=== PATIENT | female | born 1985 | race Caucasian/White ===

== ENCOUNTER 2017-01-31 16:26 | Inpatient (IN) | payer OTHER ==
--- NOTE | ~2017-01-31 | PN ---
Unit #: [id number] #: [id number] Patient: ORALIA WOODARD [id number] [facility] [address] [place] [address] [id number] I MR#: [id number] NAME: ORALIA WOODARD ROOM: [facility]6 Age: 31 Sex: F Admission Date: 01/31/2017 : 1985 Attending Physician: Cb Simon M.D. Admitting Physician: Selena Gomez PROGRESS NOTES DATE 02/02/2017 DISCUSSION Oralia complains of some mild sedation from the Seroquel but plans to take all three doses today. She slept better last night and her speech is less manic and pressured this morning. Mood remains expansive with a congruent affect. She is alert and fully oriented. She has no active psychosis today. ASSESSMENT Bipolar mixed. PLAN Continue current treatment plan. Dictated by... Selena Gomez/wellington TD: 02/03/2017 06:07 JOB #: [id number] [facility] PROGRESS NOTES Page 1 of 1 X Cb Simon MD X PROGRESS NOTE
--- NOTE | ~2017-01-31 | PN ---
Unit #: [id number] #: [id number] Patient: ORALIA WOODARD [id number] [facility] [address] [place] [address] [id number] MR#: [id number] NAME: ORALIA WOODARD ROOM: [facility] Age: 31 Sex: F Admission Date: 01/31/2017 : 1985 Attending Physician: Cb Simon M.D. Admitting Physician: Selena Gomez PROGRESS NOTES DATE 02/03/17 DISCUSSION Oralia continues to have difficulty with sedation from her daytime doses of Seroquel. Her mood is less labile and anxious with an increased range of affect. She is alert and fully oriented with no evidence of psychosis or paranoia. She would like more access to chemical dependence groups in addition to the groups offered on [address] [place] [address]. ASSESSMENT Bipolar mix, chemical dependence. PLAN We will transfer the patient to [facility] for increased access to dual diagnosis services. We will decrease Seroquel dose to 50 mg twice daily during the day and 300 mg at bedtime. Dictated by... Selena Gomez/trang TD: 02/04/2017 08:16 JOB #: [id number] [facility] GARAY NOTES Page 1 of 1 X Cb Simon MD PROGRESS NOTE
--- NOTE | ~2017-01-31 | DS ---
Unit #: [id number] #: [id number] Patient: AC WOODARD [id number] [facility] [address] [place] [address] [id number] I MR#: [id number] NAME: AC WOODARD ROOM: [facility] Age: 31 Sex: F Admission Date: 01/31/2017 : 1985 Discharge Date: 02/05/2017 Attending Physician: Cb Simon M.D. DISCHARGE SUMMARY REASON FOR ADMISSION The patient is a 31-year-old, single, white female, admitted to the [address] [place] [address] with a recurrence of bipolar depression and polysubstance abuse. HOSPITAL COURSE The patient was admitted to the care of Dr. Simon and started on Seroquel which was titrated to a dose of 50 mg b.i.d. and 300 mg at h.s., trazodone 50 mg at h.s. was also added. The patient's detox was an uneventful one and removed symptoms stabilized and by 02/05/2017, the patient requested discharge and it was so ordered. FINAL DIAGNOSES Bipolar disorder, unspecified; opioid use disorder. DISPOSITION AND DISCHARGE INSTRUCTIONS The patient is discharged on the following medications: Seroquel 50 mg b.i.d. and 300 mg at bedtime for mood stabilization, and trazodone 50 mg at h.s. p.r.n. insomnia. DISCHARGE INSTRUCTIONS No dietary or physical restrictions were placed upon the patient at the time of discharge. FOLLOWUP Followup will take place through the auspices of community mental health resources. PROGNOSIS Her prognosis is considered fair. Dictated by... Chinmay Aleman M.D. [facility]/hetal TD: 02/05/2017 16:40 JOB #: [id number] Unit #: [id number] #: [id number] Patient: AC WOODARD DISCHARGE SUMMARY Page 1 of 1 X Chinmay Aleman MD X DISCHARGE SUMMARY
--- NOTE | ~2017-01-31 | HP ---
Unit #: [id number] #: [id number] Patient: ORALIA WOODARD [id number] [place] [address] [id number] I MR#: [id number] NAME: ORALIA WOODARD ROOM: [facility]6 Age: 31 Sex: F Admission Date: 01/31/2017 : 1985 Attending Physician: Cb Simon M.D. Admitting Physician: Cb Simon M.D. HISTORY AND PHYSICAL HISTORY OF PRESENT ILLNESS Oralia is a 31 year old admitted to [address] [place] [address] with depression verbalizing wanting to hurt herself. PAST MEDICAL HISTORY 1. Long history of illicit substance abuse to include IV heroin. She tells me she has been clean and sober for 30 days. 2. Obesity. PAST SURGICAL HISTORY 1. Tubal ligation. 2. Bartholin cyst resected. 3. Oral ALLERGIES No known drug allergies. SOCIAL HISTORY Smokes one pack per day. Drinks alcohol on occasion but has been clean and sober for 30 days. Has a history of illicit substance abuse to include IV drugs but again has been clean and sober for 30 days. FAMILY HISTORY Medically noncontributory. REVIEW OF SYSTEMS CONSTITUTIONAL: No fever or chills. HEENT: Denies any sore throat, ear pain or runny nose. CARDIOVASCULAR: Denies chest pain, irregular heart rhythm or palpitations. CHEST: Denies shortness of breath or cough. No hemoptysis. GASTROINTESTINAL: Denies nausea, vomiting, diarrhea or chronic constipation. ENDOCRINE: Denies history of increased thirst or urination. No recent significant weight loss or gain. GENITOURINARY: Denies dysuria, frequency, or hematuria. SKIN: Denies any rashes. HEMATOLOGIC: Denies history of increased bleeding or bruising. MUSCULOSKELETAL: Denies any hot, swollen joints. No generalized muscle pain. NEUROLOGIC: Denies problems with vision or speech. No frequent, severe headaches. No numbness, tingling or weakness in any extremities. Denies loss of bladder or bowel control. Unit #: [id number] #: [id number] Patient: ORALIA WOODARD CURRENT MEDICATIONS 1. Seroquel 100 mg t.i.d., 300 mg q.h.s. 2. Desyrel 50 mg q.h.s. p.r.n. 3. Milk of Magnesia p.r.n. 4. Maalox p.r.n. 5. Tylenol p.r.n. 6. Nicotine patch 21 mg q day PHYSICAL EXAMINATION GENERAL: Alert, well-nourished, in no apparent distress. VITAL SIGNS: Blood pressure 128/82, heart rate 96, respirations 16, temperature 98.6. WEIGHT: 210 pounds. HEIGHT: 5'7". SKIN: Warm and dry without rash or lesion. HEENT: Normocephalic. TMs not viewed. Oral and nasal passages clear. Conjunctivae clear. Pupils equal, round and reactive to light and accommodation. Extraocular movements intact. NECK: Supple without lymphadenopathy or thyromegaly. HEART: Regular rate and rhythm without murmur. LUNGS: Clear. ABDOMEN: Soft, nontender. : Not done. EXTREMITIES: No evidence of cyanosis, clubbing or edema. Moves all extremities without focal deficit. NEUROLOGICAL: Grossly within normal limits. Cranial Nerves: II: Visual de luna are intact. III, IV AND : Extraocular movements are intact. Pupils are equal, round and reactive to light. V: Facial sensation is grossly normal. VII: Facial movements and expression are normal. VIII: Auditory acuity grossly intact. IX, X: Uvula is midline. Phonation is normal. XI: Patient shrugs shoulders and turns head normally. XII: Tongue protrudes in the midline. Sensory and Motor Function: Sensory and motor sensation is grossly normal. Motor: moves all extremities well. Coordination: Gait is normal. Deep Tendon Reflexes: Intact. IMPRESSION Psychiatric admission. RECOMMENDATIONS PSYCHIATRIC: Per psychiatrist. MEDICAL: I see no contraindications to participating in facility's activities. MEDICAL PROGNOSIS Good. MEDICAL CONDITION Stable. Dictated by... Unit #: [id number] #: [id number] Patient: ORALIA WOODARD Jaz Leal P.ARigoberto-C. for Selena Camarena/aimee TD: 02/02/2017 00:06 JOB #: [id number] HISTORY AND PHYSICAL Page 1 of 1 X Jaz Leal X HISTORY AND PHYSICAL
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
[2017-02-01 12:30] LABS: BASOPHIL% 0.5 % (0-2.5); EOSINOPHIL# 0.1 X10e3 (0-0.7); EOSINOPHIL% 1.1 % (0.0-7.0); HEMATOCRIT 41.3 % (35.0-45.0); HEMOGLOBIN 13.7 gm/dL (12.0-16.0); LYMPHOCYTE# 2.9 X10e3 (1.0-3.5); LYMPHOCYTE% 36.1 % (17.0-45.0); MEAN CELL VOLUME 84.8 FL (83-96); MEAN CORPUSCULAR HGB CONC 33.1 g/dL (30-36); MEAN PLATELET VOLUME 8.1 FL (6.5-11.5); MONOCYTE# 0.5 X10e3 (0-1.0); MONOCYTE% 6.2 % (3.0-12.0); NEUTROPHIL# 4.5 X10e3 (1.5-7.1); NEUTROPHIL% 56.1 % (40-75); PLATELET COUNT 313 X10e3 (140-420); RED BLOOD COUNT 4.88 X10e (3.90-5.30); RED CELL DISTRIBUTION WIDTH 15.4 % (11.0-15.5)
[2017-02-01 12:51] LABS: DIFF IND NO
[2017-02-01 12:53] LABS: ALBUMIN SERUM 4.3 g/dL (3.5-5.0); BILIRUBIN,TOTAL 0.5 mg/dL (0.2-2.0); CALCIUM SERUM 9.5 mg/dL (8.4-10.2); CREATININE SERUM 0.7 mg/dL (0.6-1.4); GLOM FILT RATE Estimated 115.5 mL/min (>60); POTASSIUM 3.5 mmol/L (3.5-5.1); PROTEIN TOTAL SERUM 7.6 g/dL (6.0-8.3)
== END 2017-02-05 16:30 | disposition home or self-care (01) | DRG 885 ==
LOC: P1S 16:26 → P1E 02-03 11:58
PROVIDERS: Psychiatry & Neurology Psychiatry
DX: F31.60 Bipolar disorder, current episode mixed, unspecified (principal); R45.851 Suicidal ideations; F11.20 Opioid dependence, uncomplicated; F19.20 Other psychoactive substance dependence, uncomplicated; E66.9 Obesity, unspecified; F17.210 Nicotine dependence, cigarettes, uncomplicated
CPT/HCPCS: 80053; 84703; 85025

== ENCOUNTER 2017-02-06 02:00 | Inpatient (IN) | payer OTHER ==
--- NOTE | ~2017-02-06 | PN ---
Unit #: [id number] #: [id number] Patient: ORALIA WOODARD [id number] [facility] [address] [place] [address] [id number] I MR#: [id number] NAME: ORALIA WOODARD ROOM: P202 Age: 31 Sex: F Admission Date: 02/06/2017 : 1985 Attending Physician: Cb Simon M.D. Admitting Physician: Cb Simon M.D. Primary Care Physician: Generic Doctor Not In System [facility] PROGRESS NOTES DATE 02/08/2017 DISCUSSION I am resuming Oralia's care after the weekend. She was readmitted today following her last discharge, stating that she could not stay safe in the outpatient setting and having threatened to overdose on heroin. Today she is looking for placement at a local long-term care facility and appears in better spirits. ASSESSMENT Major depression, polysubstance dependence. PLAN Continue current hospitalization and treatment plan. Dictated by... Selena Gomez/marlen TD: 02/08/2017 12:56 JOB #: [id number] [facility] PROGRESS NOTES Page 1 of 1 X Cb Simon MD PROGRESS NOTE
--- NOTE | ~2017-02-06 | PN ---
Unit #: [id number] #: [id number] Patient: AC WOODARD [id number] [facility] [address] [place] [address] [id number] I MR#: [id number] NAME: AC WOODARD ROOM: [facility] Age: 31 Sex: F Admission Date: 02/06/2017 : 1985 Attending Physician: Cb Simon M.D. Admitting Physician: Cb Simon M.D. Primary Care Physician: Generic Doctor Not In System [facility] PROGRESS NOTES DATE OF SERVICE: 02/07/2017 SUBJECTIVE This patient was seen and evaluated on 02/07/2017. She reports feeling much better today. The patient is goal oriented and focused on her sobriety. She is planning to attend the 30-day [facility] program in [place], [place]. She has a goal of transitioning from that 30-day program to the [facility]. She reports no difficulty with her appetite or sleep. The patient does feel a bit sedated with daytime Seroquel and she did decline her morning dose. Those medications can be held during the daytime due to sedation. She will meet with her primary psychiatrist tomorrow, Dr. Simon. Dictated by... Luba Gutierrez A.P.R.N. for Selena Gomez/modl TD: 02/09/2017 01:44 JOB #: [id number] [facility] PROGRESS NOTES Page 1 of 1 X Luba Gutierrez PROGRESS NOTE
--- NOTE | ~2017-02-06 | PN ---
Unit #: [id number] #: [id number] Patient: AC WOODARD [id number] [facility] [address] [place] [address] [id number] I MR#: [id number] NAME: AC WOODARD ROOM: [facility] Age: 31 Sex: F Admission Date: 02/06/2017 : 1985 Attending Physician: Cb Simon M.D. Admitting Physician: Cb Smion M.D. Primary Care Physician: Generic Doctor Not In System [email or web address] PROGRESS NOTES DATE 02/09/2017 DISCUSSION Ac continues to complain of some depressive symptoms and fleeting suicidal ideation and would like to start on antidepressant medication. She is actively seeking an outpatient treatment facility and has been on the phone for much of the date working with her social security benefits interviewer. Her mood remains depressed and labile with a congruent affect. She is alert and fully oriented with no evidence of psychosis. She does continue to endorse suicidal ideation. ASSESSMENT Major depression. PLAN Will add citalopram 20 mg daily to her Seroquel and monitor for response. Dictated by... Cb Simon M.D. [facility]/gz TD: 02/10/2017 13:48 JOB #: [id number] [facility] PROGRESS NOTES Page 1 of 1 X Cb Simon MD PROGRESS NOTE
--- NOTE | ~2017-02-06 | PN ---
Unit #: [id number] #: [id number] Patient: ORALIA WOODARD [id number] [facility] [address] [place] [address] [id number] I MR#: [id number] NAME: ORALIA WOODARD ROOM: [facility] Age: 31 Sex: F Admission Date: 02/06/2017 : 1985 Attending Physician: Cb Simon M.D. Admitting Physician: Cb Simon M.D. Primary Care Physician: Generic Doctor Not In System [facility] PROGRESS NOTES DATE 02/10/2017 DISCUSSION Oralia continues to show a little improvement today and has tolerated the introduction of citalopram with no adverse side effects. She is participating actively in groups and activities. She is alert and fully oriented and denies psychosis but does continue to report some SI. ASSESSMENT Major depression. PLAN Continue current treatment plan. Dictated by... Selena Gomez/arya TD: 02/11/2017 21:19 JOB #: [id number] [facility] PROGRESS NOTES Page 1 of 1 X Cb Simon MD X PROGRESS NOTE
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
--- NOTE | ~2017-02-06 | HP ---
Unit #: [id number] #: [id number] Patient: ORALIA WOODARD [id number] [facility] [address] [place] [address] [id number] I MR#: [id number] NAME: ORALIA WOODARD ROOM: P204 Age: 31 Sex: F Admission Date: 02/06/2017 : 1985 Attending Physician: Cb Simon M.D. Admitting Physician: Cb Simon M.D. Primary Care Physician: Generic Doctor Not In System HISTORY AND PHYSICAL Oralia is a 31-year-old female admitted on 02/06/[address] [place] [address] for depression and suicidal ideation. She was recently admitted for the same on 01/31/2017. I reviewed the history and physical from that admission and there are no changes. Dictated by..Biju Pierre/arya TD: 02/06/2017 18:35 JOB #: [id number] HISTORY AND PHYSICAL Page 1 of 1 X LISA HAIRSTON APRN HISTORY AND PHYSICAL
--- NOTE | ~2017-02-06 | DS ---
Unit #: [id number] #: [id number] Patient: AC WOODARD [id number] [facility] [address] [place] [address] [id number] I MR#: [id number] NAME: AC WOODARD ROOM: P202 Age: 31 Sex: F Admission Date: 02/06/2017 : 1985 Discharge Date: 02/11/2017 Attending Physician: Cb Simon M.D. Primary Care Physician: Generic Doctor Not In System DISCHARGE SUMMARY REASON FOR ADMISSION Ac is a 31-year-old woman who returned to the hospital today after her previous discharge reporting that she had relapsed and felt increasingly depressed, hopeless, and suicidal. She was admitted for stabilization. DIAGNOSTIC STUDIES LABORATORY RESULTS: Please see hospital chart. HOSPITAL COURSE Ac was admitted and placed on Seroquel at its previous dose together with trazodone for insomnia. Citalopram 20 mg daily was later added for control of depression. She attended the dual diagnosis groups and activities and was working toward placement in a long-term care facility. On the date of discharge, she had no further suicidal ideation, intent, or plan and was able to contract for safety in the outpatient setting. DISCHARGE DIAGNOSES AXIS I: Bipolar disorder, not otherwise specified; history of polysubstance dependence. AXIS II: No diagnosis. AXIS III: None acute. AXIS IV: AXIS V: DISCHARGE INSTRUCTIONS Follow up with chemical dependency programing of the patient's choice. She will also be connected with community mental health for her medication management. DISCHARGE MEDICATIONS Citalopram 20 mg daily for depression, trazodone 50 mg at bedtime as needed for insomnia, Seroquel 50 mg b.i.d. and 300 mg at bedtime for anxiety and mood stability. CONDITION AT DISCHARGE Improved. PROGNOSIS Good. DIET AND ACTIVITY Per primary care doctor. Unit #: [id number] #: [id number] Patient: AC WOODARD Dictated by... Cb Simon M.D. [facility]/enmanuell TD: 02/11/2017 13:10 JOB #: [id number] DISCHARGE SUMMARY Page 1 of 1 X Cb Simon MD DISCHARGE SUMMARY
== END 2017-02-11 10:50 | disposition home or self-care (01) | DRG 885 ==
LOC: P2S 12:05
DX: F31.9 Bipolar disorder, unspecified (principal); F19.20 Other psychoactive substance dependence, uncomplicated; F17.210 Nicotine dependence, cigarettes, uncomplicated; E66.9 Obesity, unspecified

== ENCOUNTER 2017-04-13 17:39 | Inpatient (IN) | payer OTHER ==
[~2017-04-13] VITALS: Ht 172.7 cm; Wt 106.6 kg
--- NOTE | ~2017-04-13 | PN ---
Unit #: [id number] #: [id number] Patient: ORALIA WOODARD [id number] [facility] [address] [place] [address] [id number] I MR#: [id number] NAME: ORALIA WOODARD ROOM: P202 Age: 31 Sex: F Admission Date: 04/13/2017 : 1985 Attending Physician: Cb Simon M.D. Admitting Physician: Cb Simon M.D. Primary Care Physician: Primary Care Physician Ellie ULRICH PROGRESS NOTES DATE OF SERVICE 04/16/2017 DISCUSSION Oralia states that she would like to continue her outpatient doctor's plan of decreasing her Seroquel and increasing Topamax for mood stability. She had not discussed this plan with me previously, but it sounds reasonable and I am willing to undergo this change. Her mood is depressed with a downcast affect. She is alert and fully oriented with no active psychosis but ongoing SI. ASSESSMENT Bipolar depressed, opiate dependence. PLAN We will decrease Seroquel to 200 mg at bedtime only and increase Topamax to 50 mg twice daily. Dictated by... Selena Gomez/aimee TD: 04/23/2017 03:15 JOB #: [id number] [facility] PROGRESS NOTES Page 1 of 1 X Cb Simon MD PROGRESS NOTE
--- NOTE | ~2017-04-13 | DS ---
Unit #: [id number] #: [id number] Patient: AC WOODARD [id number] [facility] [address] [place] [address] [id number] MR#: [id number] NAME: AC WOODARD ROOM: P202 Age: 31 Sex: F Admission Date: 04/13/2017 : 1985 Discharge Date: 04/19/2017 Attending Physician: Cb Simon M.D. Primary Care Physician: Primary Care Physician No DISCHARGE SUMMARY REASON FOR ADMISSION Ac is a 31-year-old woman with a history of chemical dependence and bipolar disorder. She reported that she had overdosed after relapse on heroin and methamphetamine and was kicked out of her [facility] house. She had suicidal ideation and could not contract for safety. She was admitted for stabilization. DIAGNOSTIC STUDIES LABORATORY DATA: Please see hospital chart. HOSPITAL COURSE The patient was admitted and placed on suicide precautions and the opiate detox protocol. Her home medications for mood and anxiety were continued. She reported that Abilify was ineffective and trazodone to help her sleep. Sinequan was substituted and this with more effective. She participated appropriately in unit groups and activities with moderate to mild detox symptomatology which gradually resolved. We started Wellbutrin XL 150 mg daily for depression and ADD. She said this was not helpful. On the date of discharge, she is once again able to contract for safety. DISCHARGE DIAGNOSIS AXIS I: Bipolar disorder most recent episode depressed. Opiate dependence. AXIS II: Diagnosis deferred. AXIS III: None acute. DISCHARGE INSTRUCTIONS Follow up with [facility]. DISCHARGE MEDICATIONS 1. Celexa 20 mg daily for depression. 2. Seroquel 200 mg at bedtime for mood stability. 3. Topamax 50 mg b.i.d. for mood stability. 4. Wellbutrin XL 150 mg daily for depression. 5. BuSpar 2 mg twice daily for anxiety. 6. Sinequan 50 mg at bedtime as needed for insomnia. CONDITION ON DISCHARGE Fair. PROGNOSIS Fair to good. DIET AND ACTIVITY Unit #: [id number] #: [id number] Patient: AC WOODARD Per primary care doctor. Dictated by... Cb Simon M.D. MRH/bzg TD: 04/23/2017 10:23 JOB #: [id number] DISCHARGE SUMMARY Page 1 of 1 X Cb Simon MD DISCHARGE SUMMARY
--- NOTE | ~2017-04-13 | PN ---
Unit #: [id number] #: [id number] Patient: ORALIA WOODARD [id number] [facility] [address] [place] [address] [id number] I MR#: [id number] NAME: ORALIA WOODARD ROOM: P202 Age: 31 Sex: F Admission Date: 04/13/2017 : 1985 Attending Physician: Cb Simon M.D. Admitting Physician: Cb Simon M.D. Primary Care Physician: Primary Care Physician Ellie ULRICH PROGRESS NOTES DATE 04/18/2017 DISCUSSION Oralia is showing some improvement today. She is requesting consideration of Wellbutrin for initiation of treatment for attention deficit and some mood lability, and we discussed the risks and benefits of this medication. I am agreeable to a trial of this medication at the patient's request. Her detox symptoms have decreased and her mood has improved some. ASSESSMENT Bipolar disorder, opiate dependence. PLAN We will add Wellbutrin XL 150 mg daily and continue current treatment plan otherwise. Dictated by... Selena Gomez/wellington TD: 04/23/2017 05:21 JOB #: [id number] [facility] PROGRESS NOTES Page 1 of 1 X Cb Simon MD PROGRESS NOTE
--- NOTE | ~2017-04-13 | HP ---
Unit #: [id number] #: [id number] Patient: ORALIA WOODARD [id number] [place] [address] [id number] I MR#: [id number] NAME: ORALIA WOODARD ROOM: P202 Age: 31 Sex: F Admission Date: 04/13/2017 : 1985 Attending Physician: Cb Simon M.D. Admitting Physician: Cb Simon M.D. Primary Care Physician: Primary Care Physician No HISTORY AND PHYSICAL HISTORY OF PRESENT ILLNESS Oralia is a 31 year old admitted to [address] [place] [address] because of her polysubstance abuse which includes heroin and methamphetamine. She has had other admissions to this facility. PAST MEDICAL HISTORY 1. Long history of illicit substance abuse to include IV heroin and meth. 2. Obesity. PAST SURGICAL HISTORY 1. Tubal ligation. 2. Bartholin's cyst resected. 3. Oral. ALLERGIES No known drug allergies. SOCIAL HISTORY Smokes one pack per day. Drinks alcohol on occasion and has a history of illicit substance abuse to include IV heroin and meth which she continues. FAMILY HISTORY Medically noncontributory. REVIEW OF SYSTEMS CONSTITUTIONAL: No fever or chills. HEENT: Denies any sore throat, ear pain or runny nose. CARDIOVASCULAR: Denies chest pain, irregular heart rhythm or palpitations. CHEST: Denies shortness of breath or cough. No hemoptysis. GASTROINTESTINAL: Denies nausea, vomiting, diarrhea or chronic constipation. ENDOCRINE: Denies history of increased thirst or urination. No recent significant weight loss or gain. GENITOURINARY: Denies dysuria, frequency, or hematuria. SKIN: Denies any rashes. HEMATOLOGIC: Denies history of increased bleeding or bruising. MUSCULOSKELETAL: Denies any hot, swollen joints. No generalized muscle pain. NEUROLOGIC: Denies problems with vision or speech. No frequent, severe headaches. No numbness, tingling or weakness in any extremities. Denies loss of bladder or bowel control. CURRENT MEDICATIONS Unit #: [id number] #: [id number] Patient: ORALIA WOODARD 1. Detox protocol. 2. Seroquel 500 mg q.h.s. 3. Topamax 25 mg b.i.d. 4. BuSpar 10 mg q. day. 5. Celexa 20 mg q. day. PHYSICAL EXAMINATION GENERAL: Alert, obese. No apparent distress. VITAL SIGNS: Blood pressure 120/66, heart rate 82, respirations 16, and temperature 98.6. WEIGHT: 235. HEIGHT: 5 feet 8 inches. SKIN: Warm and dry without rash or lesion. HEENT: Normocephalic. TMs not viewed. Oral and nasal passages clear. Conjunctivae clear. PERRLA. EOMs intact. NECK: Supple without lymphadenopathy or thyromegaly. HEART: Regular rate and rhythm without murmur. LUNGS: Clear. ABDOMEN: Soft, nontender. : Not done. EXTREMITIES: No evidence of cyanosis, clubbing or edema. Moves all without focal deficit. NEUROLOGICAL: Grossly within normal limits. Cranial Nerves: II: Visual de luna are intact. III, IV AND : Extraocular movements are intact. Pupils are equal, round and reactive to light. V: Facial sensation is grossly normal. VII: Facial movements and expression are normal. VIII: Auditory acuity grossly intact. IX, X: Uvula is midline. Phonation is normal. XI: Patient shrugs shoulders and turns head normally. XII: Tongue protrudes in the midline. Sensory and Motor Function: Sensory and motor sensation is grossly normal. Motor: moves all extremities well. Coordination: Gait is normal. Deep Tendon Reflexes: Intact. IMPRESSION Psychiatric admission. RECOMMENDATIONS PSYCHIATRIC: Per psychiatrist. MEDICAL: I see no contraindication to participate in this facility's activities. MEDICAL PROGNOSIS Good. MEDICAL CONDITION Stable. Dictated by... Travis ReidAYanira. for Selena Camarena/jacey Unit #: [id number] #: [id number] Patient: ORALIA WOODARD TD: 04/14/2017 11:57 JOB #: [id number] HISTORY AND PHYSICAL Page 1 of 1 X Jaz Leal HISTORY AND PHYSICAL
[2017-04-14 12:23] LABS: BASOPHIL% 0.5 % (0-2.5); EOSINOPHIL# 0.1 X10e3 (0-0.7); EOSINOPHIL% 1.9 % (0.0-7.0); HEMATOCRIT 36.8 % (35.0-45.0); HEMOGLOBIN 12.4 gm/dL (12.0-16.0); LYMPHOCYTE# 2.8 X10e3 (1.0-3.5); LYMPHOCYTE% 43.1 % (17.0-45.0); MEAN CELL VOLUME 87.7 FL (83-96); MEAN CORPUSCULAR HEMOGLOBIN 29.6 PG (28-34); MEAN CORPUSCULAR HGB CONC 33.8 g/dL (30-36); MEAN PLATELET VOLUME 7.8 FL (6.5-11.5); MONOCYTE# 0.4 X10e3 (0-1.0); MONOCYTE% 5.5 % (3.0-12.0); NEUTROPHIL# 3.2 X10e3 (1.5-7.1); PLATELET COUNT 313 X10e3 (140-420); RED BLOOD COUNT 4.19 X10e (3.90-5.30); RED CELL DISTRIBUTION WIDTH 14.7 % (11.0-15.5); WHITE BLOOD COUNT 6.5 X10e3 (4.0-10.5)
[2017-04-14 12:35] LABS: DIFF IND NO
[2017-04-14 12:42] LABS: ALBUMIN SERUM 3.5 g/dL (3.5-5.0); BILIRUBIN,TOTAL 0.1 mg/dL (0.2-2.0); BUN/CREATININE RATIO 17.14; CREATININE SERUM 0.7 mg/dL (0.6-1.4); GLOM FILT RATE Estimated 115.5 mL/min (>60); POTASSIUM 3.9 mmol/L (3.5-5.1); PROTEIN TOTAL SERUM 6.2 g/dL (6.0-8.3)
[2017-04-17 07:31] LABS: HA AB IGM (HEPPAN) Nonreactive (()); HB CORE AB IGM (HEPPAN) Reactive (Nonreactive); HB S AG (HEPPAN) Nonreactive (Nonreactive); HEP C AB (HEPPAN) Nonreactive (Nonreactive); HEP C AB SIGNAL TO CUTOFF 0.01 ratio (<1.00)
== END 2017-04-19 13:50 | disposition home or self-care (01) | DRG 885 ==
LOC: P2S 21:08
PROVIDERS: Psychiatry & Neurology Psychiatry
PROC: HZ2ZZZZ Detoxification Services for Substance Abuse Treatment (ICD-10-PCS; principal; 2017-04-16)
DX: F31.9 Bipolar disorder, unspecified (principal); F11.20 Opioid dependence, uncomplicated; Z98.51 Tubal ligation status; F17.210 Nicotine dependence, cigarettes, uncomplicated
CPT/HCPCS: 80053; 80074; 84703; 85025; 86592; 87806